=== PATIENT | female | born 1955 | race Caucasian/White ===

== ENCOUNTER 2023-05-14 07:37 | Day surgery (SDC) | payer MEDICARE, MEDICAID ==
[2023-05-11 15:12] LABS: BASOPHILS % (AUTO) 0.6 % (0-1); EOSINOPHILS # (AUTO) 0.6 X10'3 (0-0.9); EOSINOPHILS % (AUTO) 6.9 % (0-6); LYMPHOCYTES # (AUTO) 2.7 X10'3 (1.1-4.8); LYMPHOCYTES % (AUTO) 31.9 % (21-51); MEAN CORPUSCULAR HEMOGLOBIN 28.2 PG (27.0-31.0); MEAN CORPUSCULAR HGB CONC 33.3 g/dL (33.0-36.5); MEAN CORPUSCULAR VOLUME 84.6 FL (78-98); MEAN PLATELET VOLUME 7.9 FL (7.4-10.4); MONOCYTES # (AUTO) 0.8 X10'3 (0-0.9); MONOCYTES % (AUTO) 9.8 % (2-12); NEUTROPHILS # (AUTO) 4.2 X10'3 (1.8-7.7); NEUTROPHILS % (AUTO) 50.8 % (42-75); PRE OP HEMATOCRIT 35.6 % (35.0-45.0); PRE OP HEMOGLOBIN 11.9 g/dL (12.0-16.0); PRE OP PLATELET COUNT 314 X10'3 (140-440); PRE OP WHITE BLOOD COUNT 8.3 10'3 (4.8-10.8); RED BLOOD COUNT 4.21 X10'6 (4.20-5.60); RED CELL DISTRIBUTION WIDTH 13.8 % (11.5-14.5)
[2023-05-11 15:22] LABS: ALKALINE PHOSPHATASE 60 IU/L (46-116)
[2023-05-11 16:46] LABS: ALBUMIN 3.9 G/DL (3.4-5.0); ALBUMIN/GLOBULIN RATIO 1.1 (1.1-1.5); BLOOD UREA NITROGEN 13 MG/DL (7-18); BUN/CREATININE RATIO 11.5 (10.0-20.0); CALCIUM 8.7 MG/DL (8.5-10.1); CHLORIDE 107 MMOL/L (99-107); CREATININE 1.13 MG/DL (0.40-0.90); PRE OP ALT 29 U/L (30-65); PRE OP ANION GAP 9 (8-16); PRE OP AST 19 U/L (10-37); PRE OP BILIRUB, TOTAL 0.4 MG/DL (0.0-1.0); PRE OP GLUCOSE 103 MG/DL (70-104); PRE OP POTASSIUM 4.4 MMOL/L (3.4-5.1); PRE OP SODIUM 142 MMOL/L (135-145); TOTAL CARBON DIOXIDE 25.8 MMOL/L (24-32); TOTAL PROTEIN 7.3 G/DL (6.4-8.2); eGFR 48 ML/MIN
[~2023-05-14] VITALS: Ht 162.6 cm; Wt 98.0 kg
[2023-05-14] VITALS (15 sets, daily range): BP systolic 113–130; BP diastolic 55–72; PULSE 59–92; RESP 12–21; TEMP 98.3; O2SAT 92–100
[2023-05-14] MEDS: ringers solution, lacted 1,000 ML IV SCH (05:30)
[2023-05-14] MEDS: cefazolin 2gm/D5W 100mL 100 ML IV ONE (05:30)
[2023-05-14] MEDS: famotidine 20mg tablet PO ONE (05:30)
[~2023-05-14 07:37] MED LIST: ACET-1025 PO; ATOR10TA70 PO; CETI1TAB PO; LISI20TA28 PO; METF-1203 PO; MULT-1085 PO; PRED5DRO23 EACHEYE; SINEX NASAL SPRAY BOTHNARES
[2023-05-14] MEDS: INDOCYANINE GREEN 25 MG/10 ML VIAL IV ONE (08:31)
[2023-05-14] MEDS ORDERED: labetalol 20mg/4ml (5mg/ml) syringe IV PRN (09:00)
[2023-05-14] MEDS ORDERED: morphine 4 MG/ML inj SYRINge IV PRN (09:00)
[2023-05-14] MEDS ORDERED: ondansetron/PF 4mg/2ml inj IV PRN (09:00)
[2023-05-14] MEDS ORDERED: ringers solution, lacted 1,000 ML IV SCH (09:00)
[2023-05-14] MEDS ORDERED: meperidine/PF 25mg/ml syringe IV PRN ×3 (09:00)
[2023-05-14] MEDS ORDERED: enalaprilat dihydrate 2.5mg/2ml vial IV PRN (09:00)
[2023-05-14] MEDS ORDERED: morphine 2 MG/ML inj. syringe IV PRN (09:00)
[2023-05-14] MEDS ORDERED: proCHLORperazine 10 MG/2 ml inj IV PRN (09:00)
[2023-05-14] MEDS ORDERED: fentaNYL/PF 50MCG/1 ML 2ML syringe ONE (09:56)
[2023-05-14] MEDS ORDERED: midazolam 1 mg/ML 2ml injection ONE (09:57)
[2023-05-14] MEDS ORDERED: propofol inj 20 ML IV ONE (09:57)
[2023-05-14] MEDS ORDERED: LIDOcaine 1%/PF 5ML 10 MG/ML VIAL ONE (09:57)
[2023-05-14] MEDS ORDERED: LIDOcaine 1% 30ml preserv. free vial ONE (10:17)
[2023-05-14] MEDS ORDERED: dexamethasone sod phosphate 10mg/ml inj ONE (10:30)
[2023-05-14] MEDS ORDERED: sevoflurane 250ml liquid IH ONE (10:30)
[2023-05-14] MEDS ORDERED: ondansetron/PF 4mg/2ml inj ONE (10:30)
[2023-05-14] MEDS ORDERED: rocuronium 10mg/ml inj IV ONE (10:39)
[2023-05-14] MEDS ORDERED: acetaminophen 1,000mg/100ml IV 100 ML IV ONE (10:47)
[2023-05-14] MEDS: LIDOcaine 1% 30ml preserv. free vial IJ ONE (10:51)
[2023-05-14] MEDS: BUPIVAcaine/PF 2.5mg/ml (0.25%) 10ml vial ONE (11:13)
[2023-05-14] MEDS ORDERED: glycopyrrolate 0.2mg/ml inj ONE (11:34)
[2023-05-14] MEDS ORDERED: neostigmine methylsulfate 1 MG/ML 10ml vial ONE (11:34)
[2023-05-14] MEDS ORDERED: sugammadex 200mg/2ml injection IV ONE (11:44)
[2023-05-14] MEDS: oxyCODONE/APAP 5-325mg tablet PO PRN (13:40)
== END 2023-05-14 14:08 | disposition home or self-care (01) ==
LOC: PAS 07:37
PROVIDERS: ATTEND Surgery
DX: K80.10 Calculus of gallbladder with chronic cholecystitis without obstruction (principal); E11.9 Type 2 diabetes mellitus without complications; I10 Essential (primary) hypertension; M19.90 Unspecified osteoarthritis, unspecified site; D64.9 Anemia, unspecified; E66.9 Obesity, unspecified; Z68.37 Body mass index [BMI] 37.0-37.9, adult; Z87.891 Personal history of nicotine dependence; Z98.890 Other specified postprocedural states; Z88.5 Allergy status to narcotic agent; Z79.84 Long term (current) use of oral hypoglycemic drugs; Z79.899 Other long term (current) drug therapy; Z86.718 Personal history of other venous thrombosis and embolism; Z79.01 Long term (current) use of anticoagulants
CPT/HCPCS: 36415; 47563; 80053; 82948; 85025; 93005; J0131; J0690; J1100; J2250; J2405; J2704; J2710; J3010; J3490; J7030; J7120; Z7506; Z7508; Z7512; A4215; A4615; A4618; A7000